=== PATIENT | male | born 1980 | race Caucasian/White ===

== ENCOUNTER 2018-05-21 11:04 | Emergency (ER) | payer BC ==
[2018-05-21] MEDS ORDERED: Sodium Chloride 0.9% 10 ML Syringe FLUSH PRN (11:15)
--- NOTE | 2018-05-21 11:50 | CT ---
Head CT Technique: Multiple axial sections through the brain were obtained. Comparison: No previous intracranial imaging is available. Findings: Ventricles along with basal cisterns and sulci over the convexities are within normal limits for the patient's age. No abnormal parenchymal densities are seen. No evidence of intracranial hemorrhage. No midline shift or mass effect is seen. Bone window settings were reviewed which show no acute calvarial abnormality. Mild areas of mucosal thickening are seen within the ethmoid and frontal sinuses. Impression: 1. Mucosal thickening within portions of the ethmoid and frontal sinuses. This is most likely due to mild pre-existing chronic sinusitis. 2. No acute intracranial abnormality is identified on noncontrast head CT exam. Diagnostic code #2
--- NOTE | 2018-05-21 11:55 | EDM.PDOC ---
ED HPI GENERAL MEDICAL PROBLEM - General Chief Complaint: Neuro Symptoms/Deficits Stated Complaint: FACIAL NUMBNESS, AND LT ARM NUMB Time Seen by Provider: 05/21/18 11:15 Source of Information: Reports: Patient History Limitations: Reports: No Limitations - History of Present Illness INITIAL COMMENTS - FREE TEXT/NARRATIVE: The patient presents with left facial and left arm numbness and chest pain. This started this morning. The chest pain is gone but he still has the numbness to the left face and left arm. He denies any weakness. He says this happened on Monday. He had numbness to the left face and chest pain to the left chest. He had no numbness to his arm at that time. He went to [facility] and they did a CT of his head and labs and everything looked good. He was schedules for an MRI on here. He has no vision changes, chest pain , fever, chills, cough, shortness of breath, abdominal pain, nausea or vomiting. He has no medical problems such as hypertension. He does not have a headache now but earlier this morning when this all started at 6am he hade one. His last time known well would be 6am today. He also has a tooth ache to the right upper jaw. Onset: Gradual Duration: Hour(s): Location: Reports: Face, Upper Extremity, Left Severity: Moderate Improves with: Reports: None Worsens with: Reports: None Associated Symptoms: Reports: Chest Pain. Denies: Cough, Fever/Chills, Headaches, Nausea/Vomiting, Shortness of Breath Right Tooth/Teeth Pain Score (Numeric/FACES): 5 - Related Data Allergies Allergy/AdvReac Type Severity Reaction Status Date / Time codeine Allergy Cannot Verified 05/21/18 11:28 Remember Home Meds: Home Meds Aspirin 325 mg PO DAILY 05/21/18 [History] Hydrocodone/Acetaminophen [Hydrocodon-Acetaminophen 5-325] 1 - 2 each PO Q6HR PRN #20 tablet 05/21/18 [Rx] Penicillin V Potassium 500 mg PO Q6HR #40 tab 05/21/18 [Rx] ED ROS GENERAL - Review of Systems Review Of Systems: See Below Constitutional: Reports: No Symptoms HEENT: Reports: Other (Right upper jaw dental pain) Respiratory: Reports: No Symptoms Cardiovascular: Reports: Chest Pain (Resolved now) Endocrine: Reports: No Symptoms GI/Abdominal: Reports: No Symptoms : Reports: No Symptoms Musculoskeletal: Reports: No Symptoms Neurological: Reports: Numbness (Left face and left arm). Denies: Headache, Trouble Speaking, Difficulty Walking, Weakness ED EXAM, NEURO - Physical Exam Exam: See Below Exam Limited By: No Limitations General Appearance: Alert, No Apparent Distress Ears: Normal External Exam Nose: Normal Inspection Head Exam: Atraumatic, Normocephalic Neck: Normal Inspection Respiratory/Chest: No Respiratory Distress, Lungs Clear, Normal Breath Sounds Cardiovascular: Regular Rate, Rhythm, No Edema, No Murmur GI/Abdominal: Soft, Non-Tender, No Organomegaly, No Mass Neurological: Alert, Oriented x 3, Other (No weakness on exam but gross numbness on exam to the left face and left arm. He has normal finger to nose. Mild right sided facial droop.) EKG INTERPRETATION EKG Date: 05/21/18 Time: 11:27 Rhythm: NSR Rate (Beats/Min): 75 [place]: Normal P-Wave: Present QRS: Normal ST-T: Normal QT: Normal Course - Vital Signs Last Recorded V/S: Last Vital Signs Temp 98.4 F 05/21/18 11:05 Pulse 72 05/21/18 11:05 Resp 16 05/21/18 11:05 BP 142/91 H 05/21/18 11:05 Pulse Ox 96 05/21/18 11:05 - Orders/Labs/Meds Orders: Active Orders 24 hr Category Date Time Status Cardiac Monitoring [RC] . DIRECTED Care 05/21/18 11:15 Active EKG Documentation Completion [RC] STAT Care 05/21/18 11:16 Active Peripheral IV Care [RC] . DIRECTED Care 05/21/18 11:16 Active Sodium Chloride 0.9% [Saline Flush] Med 05/21/18 11:15 Active 10 ml FLUSH ASDIRECTED PRN Peripheral IV Insertion Adult [OM.PC] Stat Oth 05/21/18 11:15 Ordered Medication Orders Sodium Chloride (Saline Flush) 10 ml FLUSH ASDIRECTED PRN PRN Reason: Keep Vein Open Last Admin: 05/21/18 11:15 Dose: 10 ml Labs: Laboratory Tests 05/21/18 05/21/18 05/21/18 Range/Units 11:15 11:15 11:19 WBC 11.39 H (4.23-9.07) K/mm3 RBC 4.78 (4.63-6.08) M/mm3 Hgb 14.9 (13.7-17.5) gm/L Hct 44.4 (40.1-51.0) % MCV 92.9 H (79.0-92.2) fl MCH 31.2 (25.7-32.2) pg MCHC 33.6 (32.2-35.5) g/dl RDW Std Deviation 41.7 (35.1-43.9) fL Plt Count 222 (163-337) K/mm3 MPV 10.5 (9.4-12.3) fl Neut % (Auto) 71.2 H (34.0-67.9) % Lymph % (Auto) 19.2 L (21.8-53.1) % Rich % (Auto) 7.9 (5.3-12.2) % Eos % (Auto) 0.8 (0.8-7.0) Baso % (Auto) 0.5 (0.1-1.2) % Neut # (Auto) 8.11 H (1.78-5.38) K/mm3 Lymph # (Auto) 2.19 (1.32-3.57) K/mm3 Rich # (Auto) 0.90 H (0.30-0.82) K/mm3 Eos # (Auto) 0.09 (0.04-0.54) K/mm3 Baso # (Auto) 0.06 (0.01-0.08) K/mm3 Sodium 142 (136-145) mEq/L Potassium 4.0 (3.5-5.1) mEq/L Chloride 105 (98-107) mEq/L Carbon Dioxide 27 (21-32) mEq/L Anion Gap 14.0 (5-15) BUN 12 (7-18) mg/dL Creatinine 1.1 (0.7-1.3) mg/dL Est Cr Clr Drug Dosing 97.93 mL/min Estimated GFR (MDRD) > 60 (>60) mL/min BUN/Creatinine Ratio 10.9 L (14-18) Glucose 97 (74-106) mg/dL POC Glucose 88 (70-105) mg/dL Calcium 9.0 (8.5-10.1) mg/dL Total Bilirubin 0.4 (0.2-1.0) mg/dL AST 15 (15-37) U/L ALT 36 (16-63) U/L Alkaline Phosphatase 62 (46-116) U/L Troponin I < 0.017 (0.00-0.056) ng/mL Total Protein 7.7 (6.4-8.2) g/dl Albumin 4.2 (3.4-5.0) g/dl Globulin 3.5 gm/dL Albumin/Globulin Ratio 1.2 (1-2) Meds: Medications Generic Name Dose Route Start Last Admin Trade Name Freq PRN Reason Stop Dose Admin Sodium Chloride 10 ml 05/21/18 11:15 05/21/18 11:15 Saline Flush FLUSH 10 ml ASDIRECTED PRN Administration Keep Vein Open - Re-Assessments/Exams Free Text/Narrative Re-Assessment/Exam: 05/21/18 11:57 A stroke alert was called. I went into the room right away. The patient's last time known well was 6am this morning. I ordered a saline lock, EKG, CT of his head and labs. His EKG shows a NSR with no acute changes. His CT shows mucosal thickening within portions of the ethmoid and frontal sinuses. This is most likely due to mild pre-existing chronic sinusitis. No acute intracranial abnormality is identified on noncontrast head CT exam. I called to see if we had a slot for MRI. They will call me back. 05/21/18 14:13 I was able to get the patient in for an MRI. The MRI shows sinus findings most likely due to pre-existing chronic sinusitis. No additional abnormality is identified on MRI study of the brain. No acute diffusion abnormalities are seen. It appears the patient did not have a stroke. He may have a peripheral neuropathy. His numbness is gone now. He does have a dental abscess. I will get him on some antibiotic and something for pain. Departure - Departure Time of Disposition: 14:20 Disposition: Home, Self-Care 01 Condition: Good Clinical Impression: Arm numbness left, Numbness of face, Dental abscess, Pain, dental - Discharge Information *PRESCRIPTION DRUG MONITORING PROGRAM REVIEWED*: No *COPY OF PRESCRIPTION DRUG MONITORING REPORT IN PATIENT MYNOR: No Prescriptions: Hydrocodone/Acetaminophen [Hydrocodon-Acetaminophen 5-325] 1 - 2 each PO Q6HR PRN #20 tablet PRN Reason: Pain Penicillin V Potassium 500 mg PO Q6HR #40 tab Referrals: PCP,None [Primary Care Provider] - Jose Manzo MD [Ordering Only Provider] - 1 Week Forms: ED Department Discharge Additional Instructions: Take the antibiotic as prescribed. Put a warm compress on your face 3 times per day. Take motrin or tylenol for pain. If that does not help, try some hydrocodone. Follow up with a dentist. Follow up with Dr Manzo a neurologist at [facility] in [place]. Please return if you are worse. - My Orders Last 24 Hours: My Active Orders 05/21/18 11:15 Cardiac Monitoring [RC] . DIRECTED Sodium Chloride 0.9% [Saline Flush] 10 ml FLUSH ASDIRECTED PRN Peripheral IV Insertion Adult [OM.PC] Stat 05/21/18 11:16 EKG Documentation Completion [RC] STAT Peripheral IV Care [RC] . DIRECTED - Assessment/Plan Last 24 Hours: My Active Orders 05/21/18 11:15 Cardiac Monitoring [RC] . DIRECTED Sodium Chloride 0.9% [Saline Flush] 10 ml FLUSH ASDIRECTED PRN Peripheral IV Insertion Adult [OM.PC] Stat 05/21/18 11:16 EKG Documentation Completion [RC] STAT Peripheral IV Care [RC] . DIRECTED
--- NOTE | 2018-05-21 12:36 | CR ---
Skull: Two views of the skull were obtained. Comparison: No prior skull study. Findings: Mild mucosal thickening is seen within the right maxillary sinus. Sinuses otherwise are clear. Surrounding bony structures are intact. No radiopaque foreign object is seen. Impression: 1. Finding which is felt to be incidental as described above. 2. Nothing seen to contraindicate scheduled MRI. Diagnostic code #2
--- NOTE | 2018-05-21 13:38 | MR ---
MRI brain Technique: T1 sagittal; T2, T2 FLAIR, T1 and diffusion axial; T1 coronal; T2 gradient echo coronal and axial images also obtained. Comparison: Prior head CT study of 05/21/18. Findings: Ventricles along with basal cisterns and sulci over the convexities are within normal limits for the patient's age. Mild areas of mucosal thickening are seen within the ethmoid and right maxillary sinus. Normal signal void is seen within the major cerebral arteries within the skull base. No abnormal signal is seen within the brain parenchyma. No midline shift or mass effect is seen. No acute diffusion abnormalities are seen. Impression: 1. Sinus findings as noted above most likely due to pre-existing chronic sinusitis. 2. No additional abnormality is identified on MRI study of the brain. No acute diffusion abnormalities are seen. Diagnostic code #2
== END 2018-05-21 14:50 | disposition home or self-care (01) ==
LOC: JD.ED 11:04
DX: K04.7 Periapical abscess without sinus (principal); R20.0 Anesthesia of skin; Z79.899 Other long term (current) drug therapy; Z79.82 Long term (current) use of aspirin; Z88.5 Allergy status to narcotic agent
CPT/HCPCS: 36415; 70250; 70250-26; 70450; 70450-26; 70551; 70551-26; 80053; 82962; 84484; 85025; 93005; 93010; 99283; 99285-25